=== PATIENT | female | born 1975 | race Caucasian/White ===

== ENCOUNTER 2024-08-25 11:25 | Inpatient (IN) | payer SELFPAY ==
[~2024-08-25] VITALS: Ht 175.3 cm; Wt 130.6 kg
--- NOTE | 2024-08-25 12:03 | ED.PDOC ---
Eye-HPI HPI Comments 49y F who presents to the ED for chief complaint of sore throat. Pt states she has been taking amoxicillin for her tonsilitis and has finished her course but still continuing to have pain. Pt states he has noticed she has also started to have mouth sores and increasing pain which has been disrupting her sleep and came for further evaluation. Pt states she has also been having bilateral leg swelling for the past 1 week. Pt otherwise denies chest pain, shortness of breath, nausea, vomiting, fever, cough, chills, headache or dizziness. Pt denies any other symptoms at this time. Chief Complaint: Sore Throat Time Seen by MD: 12:01 Reviewed Notes: Medications, Allergies Information Source: Patient, Spouse Mode of Arrival: Ambulatory Brought in by: spouse Past Medical History PAST MEDICAL HISTORY: HTN, Thyroid Surgical History (Other): therapeutic [employer] History: Denies all [employer] Hx Family History Family History: Unknown Social History Smoker: Non-Smoker Alcohol: Denies ETOH Use Drugs: Denies Drug Use Lives In: Home Constitutional: denies: chills, diaphoresis, fatigue, fever, malaise, sweats, weakness, others EENTM: reports: mouth pain, throat pain; denies: blurred vision, double vision, ear bleeding, ear discharge, ear drainage, ear pain, ear ringing, eye pain, eye redness, hearing loss, mouth swelling, nasal discharge, nose bleeding, nose congestion, nose pain, photophobia, tearing, throat swelling, voice changes, others Respiratory: denies: cough, hemoptysis, orthopnea, SOB at rest, shortness of breath, SOB with excertion, stridor, wheezing, others Cardiovascular: denies: chest pain, dizzy spells, diaphoresis, Dyspnea on exertion, edema, irregular heart beat, left arm pain, lightheadedness, palpitations, PND, syncope, others Gastrointestinal: denies: abdomen distended, abdominal pain, blood streaked bowels, constipated, diarrhea, dysphagia, difficulty swallowing, hematemesis, melena, nausea, poor appetite, poor fluid intake, rectal bleeding, rectal pain, vomiting, others Genitourinary: denies: abnormal vagina bleeding, burning, dyspareunia, dysuria, flank pain, frequency, hematuria, incontinence, pain, , vagina discharge, urgency, others Neurological: denies: dizziness, fainting, headache, left sided numbness, left sided weakness, numbness, paresthesia, pre-existing deficit, right sided numbness, right sided weakness, seizure, speech problems, tingling, tremors, weakness, others Musculoskeletal: denies: back pain, gout, joint pain, joint swelling, muscle pain, muscle stiffness, neck pain, others Integumetry: denies: bruises, change in color, change in hair/nails, dryness, laceration, lesions, lumps, rash, wounds, others Allergic/Immunocompromised: denies: Difficulty Healing, Frequent Infections, Hives, Itching, others Hematologic/Lymphatic: denies: anemia, blood clots, easy bleeding, easy bruising, swollen glands, others Endocrine: denies: excessive hunger, excessive sweating, excessive thirst, excessive urination, flushing, intolerance to cold, intolerance to heat, unexplained weight gain, unexplained weight loss, others Psychiatric: denies: anxiety, bipolar disorder, depression, hopeless, panic disorder, schizophrenia, sleepless, suicidal, others All Other Systems: Reviewed and Negative Physical Exam General Appearance: Moderate Distress HEENT: Pharyngeal Erythema, Tonsillar Exudate Neck: Full Range of Motion, Non-Tender, Normal, Normal Inspection Respiratory: Chest Non-Tender, Lungs Clear, No Accessory Muscle Use, No Respiratory Distress, Normal Breath Sounds Cardiovascular: No Edema, No JVD, No Murmur, No Gallop, Normal Peripheral Pulses, Regular Rate/Rhythm Breast Exam: Deferred Gastrointestinal: No Organomegaly, Non Tender, No Pulsatile Mass, Normal Bowel Sounds, Soft Genitalia: Deferred Pelvic: Deferred Rectal: Deferred Extremities: No calf tenderness, Normal capillary refill, Normal inspection, Normal range of motion, Non-tender, No pedal edema Musculoskeletal : Apperance: Normal Neurologic: Alert, hand etcher II-XII nml as Tested, No Motor Deficits, Normal Affect, Normal Mood, No Sensory Deficits Cerebellar Function: Normal Reflexes: Normal Skin: Dry, Normal Color, Warm Peripheral Pulses: 3+ Radial (R), 3+ Radial (L) Lymphatic: No Adenopathy Was a procedure done? Was a procedure done?: No EENT DIFF Eye: Bacterial, Viral Sore Throat: Epiglottitis, Hand Foot Mouth Disease, Peritonsillar Abscess, Peritonsillar Cellulitis, Pharyngitis, Streptococcal, Viral Pharyngitis X-Ray, Labs, Meds, VS Vital Signs Date Time Temp Pulse Resp B/P (MAP) Pulse Ox O2 Delivery O2 Flow Rate FiO2 08/25/24 14:47 105 19 97 Room Air* 0 21 08/25/24 14:46 104 19 104/68 (80) 97 08/25/24 14:41 98.7 101 18 138/76 (96) 99 98.7 08/25/24 11:30 98.4 106 20 138/76 (96) 99 Lab Test 08/25/24 14:53 08/25/24 13:43 Range/Units POC Glucose > 600 *H 70-106 mg/dl White Blood Count 13.2 H 4.4-10.8 10^3/uL Red Blood Count 4.90 4.0-5.20 10^6/uL Hemoglobin 15.4 12.2-16.2 g/dL Hematocrit 44.4 36.0-46.0 % Mean Corpuscular Volume 90.6 80.0-100.0 fL Mean Corpuscular Hemoglobin 31.5 28.0-32.0 pg Mean Corpuscular Hemoglobin Concent 34.7 32.0-36.0 g/dL Red Cell Distribution Width 14.1 11.8-14.3 % Platelet Count 300 140-450 10^3/uL Mean Platelet Volume 9.3 6.9-10.8 fL Neutrophils (%) (Auto) 82.5 H 37.0-80.0 % Lymphocytes (%) (Auto) 10.1 10.0-50.0 % Monocytes (%) (Auto) 5.8 0.0-12.0 % Eosinophils (%) (Auto) 1.0 0.0-7.0 % Basophils (%) (Auto) 0.6 0.0-2.0 % Neutrophils # (Auto) 10.9 H 1.6-8.6 10 ^3/uL Lymphocytes # (Auto) 1.3 0.4-5.4 10 ^3/uL Monocytes # (Auto) 0.8 0-1.3 10 ^3/uL Eosinophils # (Auto) 0.1 0-0.8 10 ^3/uL Basophils # (Auto) 0.1 0-0.2 10 ^3/uL Nucleated Red Blood Cells 0.1 % Sodium Level 121 L 136-145 mmol/L Potassium Level 4.0 3.5-5.1 mmol/L Chloride Level 88 L 98-107 mmol/L Carbon Dioxide Level 18 L 20-31 mmol/L Anion Gap 15 5-15 Blood Urea Nitrogen 15 9-23 mg/dL Creatinine 1.13 H 0.550-1.02 mg/dL Glomerular Filtration Rate Calc 60 >90 mL/min BUN/Creatinine Ratio 13.3 10.0-20.0 Serum Glucose 573 *H 74-106 mg/dL Calcium Level 9.1 8.7-10.4 mg/dL Current Medications Medications (Trade) Dose Ordered Sig/Leah Route Start Time Stop Time Status Last Admin Insulin Human Regular (InsuLIN R) 10 units ONCE ONCE IV 08/25/24 14:45 08/25/24 14:46 DC 08/25/24 15:02 Sodium Chloride 1,000 ml @ 1,000 mls/hr Q1H ONCE IV 08/25/24 14:45 08/25/24 15:44 08/25/24 14:58 Sodium Chloride 1,000 ml @ 150 mls/hr Q6H40M ONCE IV 08/25/24 14:45 08/25/24 21:24 08/25/24 14:58 Ceftriaxone Sodium 50 ml @ 100 mls/hr ONCE ONCE IV 08/25/24 14:45 08/25/24 15:14 DC 08/25/24 15:01 Patient alert. Complaining of throat pain. Vitals stable. Answering all questions. On examination of the pharynx is redness with tonsillar pillar exudate. Blood sugar elevated pain Establish intravenous access. Was given fluids pain Was given insulin. Was given Rocephin. WBC elevated. Hemoglobin within normal limits. Reviewed her history. Explained to the patient treatment plan. Continue cardiac monitoring. Time of 1ST Reevaluation: 12:35 Reevaluation 1ST: Unchanged Patient Education/Counseling: Diagnosis, Treatment Family Education/Counseling: No Family Present Departure 1 Departure Time of Disposition: 15:16 Impression: Primary Impression: Hyperglycemia Additional Impression: Tonsillitis Disposition: ADMITTED INPATIENT Admit to: Med Surg Condition: Guarded Critical Care Note Critical Care Time?: Yes (45 min-critical care time only) Stability Stability form required: No Heart Score Heart Score: Heart Score Response (Comments) Value History N/A 0 EKG N/A 0 Age N/A 0 Risk Factors N/A 0 Troponin N/A 0 Total 0 I personally scribed for ALEJANDRA DANIELS [facility] ([facility] on 08/25/24 at 12:03. Electronically submitted by Opal Rubalcava ([facility] ALEJANDRA DANIELS MD Aug 25, 2024 12:03
[2024-08-25 14:19] LABS: Chloride 88 mmol/L (98-107); Sodium 121 mmol/L (136-145)
[2024-08-25 14:20] LABS: Anion Gap 15 (5-15); Calcium 9.1 mg/dL (8.7-10.4); Carbon Dioxide 18 mmol/L (20-31)
[2024-08-25 14:25] LABS: BUN/Creatinine Ratio 13.3 (10.0-20.0); Blood Urea Nitrogen 15 mg/dL (9-23)
[2024-08-25 14:32] LABS: Glucose 573 mg/dL (74-106)
[2024-08-25 14:47] VITALS: PULSE 105; RESP 19; O2SAT 97
[2024-08-25] MEDS: SODIUM CHLORIDE 0.9% 1,000 ML IV ONE ×2 (14:58)
[2024-08-25] MEDS: cefTRIAXone 1GM/50ML D5W 50 ML IV ONE (15:01)
[2024-08-25] MEDS: InsuLIN REG 1unit/0.01ml Soln (100units/ml) IV ONE (15:02)
[2024-08-25 15:04] LABS: Basophils # (auto) 0.1 10 ^3/uL (0-0.2); Basophils % (auto) 0.6 % (0.0-2.0); Eosinophils # (auto) 0.1 10 ^3/uL (0-0.8); Hematocrit 44.4 % (36.0-46.0); Hemoglobin 15.4 g/dL (12.2-16.2); Lymphocytes # (auto) 1.3 10 ^3/uL (0.4-5.4); Lymphocytes % (auto) 10.1 % (10.0-50.0); Mean Corpuscular Hemoglobin 31.5 pg (28.0-32.0); Mean Corpuscular Hgb Conc. 34.7 g/dL (32.0-36.0); Mean Corpuscular Volume 90.6 fL (80.0-100.0); Monocytes # (auto) 0.8 10 ^3/uL (0-1.3); Monocytes % (auto) 5.8 % (0.0-12.0); Neutrophils # (auto) 10.9 10 ^3/uL (1.6-8.6); Neutrophils % (auto) 82.5 % (37.0-80.0); Nucleated Red Blood Cells % 0.1 %; Platelet Count (auto) 300 10^3/uL (140-450); Red Cell Distribution Width 14.1 % (11.8-14.3); White Blood Cell 13.2 10^3/uL (4.4-10.8)
[2024-08-25] MEDS ORDERED: INSULIN DRIP 100 UNIT/100ML 100 ML IV SCH (17:00)
[2024-08-25] MEDS ORDERED: DEXTROSE (50%) 50ML SYRG IV PRN (17:00)
[2024-08-25] MEDS ORDERED: ACCU-CHEK COMFORT CURVE STRIP VI SCH (18:00)
[2024-08-25 20:07] VITALS: BP 121/73; PULSE 103; RESP 18; TEMP 98.1
[2024-08-25] MEDS ORDERED: NITROGLYCERIN 0.4 MG SL TAB SL PRN (20:45)
[2024-08-25] MEDS ORDERED: MORPHINE SULFATE INJ 2 MG/ml SYRG IV PRN (20:45)
[2024-08-25] MEDS ORDERED: ONDANSETRON HCL 4 MG/2 ML VIAL IV PRN (20:45)
[2024-08-25] MEDS: SODIUM CHLOR 0.9% PF (SALINE LOCK) 10ML VIAL/SYR IV SCH (22:21)
[2024-08-26] VITALS (7 sets, daily range): BP systolic 105–123; BP diastolic 64–81; PULSE 85–97; RESP 16–20; TEMP 97.3–99.1; O2SAT 96–100
--- NOTE | 2024-08-26 00:08 | DVHHPRES ---
History of Present Illness Resident Creating Document: LUIS ALFREDO LEAL RESIDENT History of Present Illness This is a 49-year-old female with past medical history of hypertension, hypothyroidism , degenerative disc disease, peripheral neuropathy, presented to the ED with a chief complaint of sore throat, low-grade fever, body ache and muscle pain intermittently for last 1 month prior to this admission. She states she took amoxicillin for sore throat ,finished the course but still she has pain in the throat and also has low-grade fever on and off for last 1 month. She was not able to see the doctor because of no insurance. She Also mentioned recently was diagnosed with type 2 diabetes mellitus but her doctor never sent her prescription for the medication. She denies chest pain, shortness of breath, dizziness, diaphoresis, abdominal pain, nausea ,vomiting, sick contact or any traveling history. Cardiovascular: HTN Endocrine: Diabetes, Hypothyroidism Past Medical History Hypertension, degenerative disc disease, hypothyroidism and peripheral neuropathy Past Surgical History: None Family History Mother in stroke Past Social History Smokes marijuana, occasional drinker and never tried any other drugs Lives with family Review of Systems Constitutional: Yes: Malaise; No: Fever, Chills, Sweats, Weakness, Other Eyes: No: Pain, Vision change, Conjunctivae inflammation, Eyelid inflammation, Other, Redness ENT: No: Ear pain, Ear discharge, Nose pain, Nose discharge, Nose congestion, Mouth pain, Mouth swelling, Throat pain, Throat swelling, Other Cardiovascular: No: Chest Pain, Palpitations, Orthopnea, Paroxysmal Noc. Dyspnea, Edema, Lt Headedness, Other Gastrointestinal: No: Nausea, Vomiting, Abdominal Pain, Diarrhea, Constipation, Melena, Hematochezia, Other Genitourinary: No Dysuria, No Frequency, No Incontinence, No Hematuria, No Retention, No Other Musculoskeletal: No: other, neck pain, shoulder pain, arm pain, back pain, hand pain, leg pain, foot pain Skin: No: Rash, Lesions, Jaundice, Bruising, Other Neurological: No: Weakness, Numbness, Incoordination, Change in speech, Confusion, Seizures, Other Allergies: Coded Allergies: NO KNOWN ALLERGIES (Unverified , 08/25/24) Medications Current Medications Medications Dose Ordered Sig/Leah Route Start Time Stop Time Status Last Admin Dose Admin Sodium Chloride 10 ml Q8HR IV 08/25/24 22:00 08/25/24 22:21 10 ML Acetaminophen 325 mg Q4HP PRN PO 08/25/24 20:45 Acetaminophen/ Hydrocodone Bitart 1 tab Q4HP PRN PO 08/25/24 20:45 Ondansetron HCl 4 mg Q4HP PRN IV 08/25/24 20:45 Nitroglycerin 0.4 mg Q5MINP PRN SL 08/25/24 20:45 Morphine Sulfate 2 mg Q30M PRN IV 08/25/24 20:45 Insulin Glargine 15 units QAM SC 08/26/24 07:00 UNV Diagnostic Test (Pha) 1 strip ACHS 08/26/24 07:00 UNV Insulin Human Regular AC SC 08/26/24 07:00 UNV Insulin Human Regular HS SC 08/26/24 22:00 UNV Dextrose 50 ml UD PRN IV 08/26/24 00:15 UNV Exam Vital Signs Vital Signs Date Time Temp Pulse Resp B/P (MAP) Pulse Ox O2 Delivery O2 Flow Rate FiO2 08/25/24 20:07 98.1 103 18 121/73 (89) 98.1 08/25/24 20:07 Room Air* 0 21 08/25/24 16:49 98 Exam Physical examination: General Appearance: Alert, Oriented X3, Cooperative, No acute distress HEENT: Atraumatic, PERRLA, EOMI, Mucous membrane moist/pink Respiratory: Clear to auscultation, Normal air movement Cardiovascular: Regular rate, Normal S1, Normal S2, No murmurs, no chest wall tenderness Abdominal: Normal bowel sounds, Soft, No tenderness, No hepatospenomegaly, No masses Extremities: No clubbing, No cyanosis, No edema, Normal pulses, No tenderness/swelling Skin: No rashes, No breakdown, No significant lesion Neuro: Normal gait, Normal speech, Strength at 5/5 X4 ext, Normal tone, Sensation intact. Psych/Mental Status: Mental status NL, Mood NL Labs/Xrays Labs Test 08/25/24 20:24 08/25/24 13:43 Range/Units POC Glucose 495 *H 70-106 mg/dl White Blood Count 13.2 H 4.4-10.8 10^3/uL Red Blood Count 4.90 4.0-5.20 10^6/uL Hemoglobin 15.4 12.2-16.2 g/dL Hematocrit 44.4 36.0-46.0 % Mean Corpuscular Volume 90.6 80.0-100.0 fL Mean Corpuscular Hemoglobin 31.5 28.0-32.0 pg Mean Corpuscular Hemoglobin Concent 34.7 32.0-36.0 g/dL Red Cell Distribution Width 14.1 11.8-14.3 % Platelet Count 300 140-450 10^3/uL Mean Platelet Volume 9.3 6.9-10.8 fL Neutrophils (%) (Auto) 82.5 H 37.0-80.0 % Lymphocytes (%) (Auto) 10.1 10.0-50.0 % Monocytes (%) (Auto) 5.8 0.0-12.0 % Eosinophils (%) (Auto) 1.0 0.0-7.0 % Basophils (%) (Auto) 0.6 0.0-2.0 % Neutrophils # (Auto) 10.9 H 1.6-8.6 10 ^3/uL Lymphocytes # (Auto) 1.3 0.4-5.4 10 ^3/uL Monocytes # (Auto) 0.8 0-1.3 10 ^3/uL Eosinophils # (Auto) 0.1 0-0.8 10 ^3/uL Basophils # (Auto) 0.1 0-0.2 10 ^3/uL Nucleated Red Blood Cells 0.1 % Sodium Level 121 L 136-145 mmol/L Potassium Level 4.0 3.5-5.1 mmol/L Chloride Level 88 L 98-107 mmol/L Carbon Dioxide Level 18 L 20-31 mmol/L Anion Gap 15 5-15 Blood Urea Nitrogen 15 9-23 mg/dL Creatinine 1.13 H 0.550-1.02 mg/dL Glomerular Filtration Rate Calc 60 >90 mL/min BUN/Creatinine Ratio 13.3 10.0-20.0 Serum Glucose 573 *H 74-106 mg/dL Calcium Level 9.1 8.7-10.4 mg/dL Assessment/Plan Assessment/Plan Assessment and plan: # Hyperglycemia with normal anion gap, ruled out diabetic ketoacidosis - On admission blood glucose was 600 with normal anion gap - Started Lantus 15 units q.a.m. and aggressive sliding scale of insulin. - Monitor blood sugar closely # Pseudohyponatremia due to hyperglycemia - Corrected sodium is 129-133 - Patient was given 2 L IV bolus - Monitor BMP. # ALEXANDRA secondary to hemodynamically mediated/VMN - IV normal saline at 75 mL/hour - Monitor BMP. # Morbid obesity( BMI 40.0 kg/m2) - Counseled patient regarding healthy diet, lifestyle modification and physical exercise # Severe hypothyroidism - History of hypothyroidism but patient was not able to take medication because of the lack of insurance - Levothyroxine 112 mcg daily # Hypertensive heart disease - Lisinopril 5 mg daily # Hypokalemia - Replenished # Vitamin-D deficiency - Vitamin-D 80956 units Q 7D # DVT prophylaxis - Lovenox 40 mg sc daily Goal of care discussed with the patient for more than 20 minutes full code Plan of treatment discussed with Dr. Skinner Plan discussed with: Patient, Other My Orders Orders - LUIS ALFREDO LEAL RESIDENT Procedure Category Date Status Time Admit ADMIT 08/25/24 Transmitted 20:35 Allergies JACQUELYN 08/25/24 In Process 20:35 Code Status CODE 08/25/24 Transmitted 20:35 Sodium Chloride Lock PHA 08/25/24 In Process (Saline Lock Ns) 22:00 Oxygen Per Hour RT 08/25/24 Transmitted 20:35 Acetaminophen Tablet PHA 08/25/24 In Process (Tylenol Tablet) 20:45 Hydrocodone-Acet PHA 08/25/24 In Process 5/325mg Tab ([place] 20:45 Ondansetron Hcl PHA 08/25/24 In Process (Zofran) 20:45 Complete Blood Count LAB 08/26/24 Logged 04:00 Comprehensive LAB 08/26/24 Logged Metabolic Panel 04:00 Npo (Nothing By DIET 08/26/24 Transmitted Mouth) Diet Breakfast Nitroglycerin PHA 08/25/24 In Process Sublingual (Ntrostat 20:45 Morphine Sulfate PHA 08/25/24 In Process Injection 20:45 Oxygen By Nasal RT 08/25/24 Transmitted Cannula 20:35 Stat Ekg For Chest JACQUELYN 08/25/24 In Process Pain 20:35 Notify Of Changes [facility] 08/25/24 In Process From Base 20:35 Orchid Transplanter For [facility] 08/25/24 In Process 24 Hours 20:35 Emergency Dysrhythmia [facility] 08/25/24 In Process Protocol 20:35 Rhythm Strips Once [facility] 08/25/24 In Process Every Shift 20:35 Insulin Lantus PHA 08/26/24 Logged (Glargine) (Lantus) 07:00 Glucose Blood PHA 08/26/24 Logged (Accu-Chek Comfort 07:00 Insulin R (Human) PHA 08/26/24 Logged (Insulin R) 07:00 Insulin R (Human) PHA 08/26/24 Logged (Insulin R) 22:00 Dextrose 50% Syringe PHA 08/26/24 Logged 00:15 Urinalysis LAB 08/26/24 Uncollected 00:03 Test, Urine LAB 08/26/24 Transmitted 00:03 Thyroid Stimulating LAB 08/26/24 Transmitted Hormone 00:03 Vitamin B12 LAB 08/26/24 Transmitted 00:03 Vitamin D, 25-Hydroxy LAB 08/26/24 Transmitted 00:03 LUIS ALFREDO LEAL RESIDENT Aug 26, 2024 00:08
[2024-08-26] MEDS ORDERED: DEXTROSE (50%) 50ML SYRG IV PRN ×2 (00:15→01:45)
[2024-08-26] MEDS: HYDROcodone-ACET 5/325MG TAB PO PRN (00:30)
[2024-08-26] MEDS: ACCU-CHEK COMFORT CURVE STRIP VI SCH (01:45)
[2024-08-26] MEDS: InsuLIN REG 1unit/0.01ml Soln (100units/ml) SC SCH (02:08)
[2024-08-26] MEDS: SODIUM CHLORIDE 0.9% 1,000 ML IV SCH ×2 (03:30→15:47)
[2024-08-26 03:40] LABS: Urine Bacteria None Seen /hpf (None Seen)
[2024-08-26 03:52] LABS: Urine Blood 2+ /uL (Negative); Urine Clarity Clear (Clear); Urine Color Light-Yellow (Yellow); Urine Mucus FEW (None Seen); Urine Protein, UAD Negative (Negative); Urine Specific Gravity 1.035 (1.001-1.035); Urine Urobilinogen Normal (Negative); Urine WBC 3 /hpf (0 - 5)
[2024-08-26 03:56] LABS: Amphetamine Screen, Urine Neg (NEGATIVE); Barbiturate Scree,Urine Neg (NEGATIVE); Benzodiazephine Screen, Urine Neg (NEGATIVE); Cannabinoid Screen, Urine Neg (NEGATIVE); Cocaine Screen, Urine Neg (NEGATIVE); Opiate Scree,Urine Neg (NEGATIVE); Phencyclidine Screen, Urine Neg (NEGATIVE)
[2024-08-26 05:19] LABS: Basophils # (auto) 0 10 ^3/uL (0-0.2); Basophils % (auto) 0.4 % (0.0-2.0); Eosinophils # (auto) 0.1 10 ^3/uL (0-0.8); Eosinophils % (auto) 1.5 % (0.0-7.0); Hematocrit 39.5 % (36.0-46.0); Hemoglobin 13.7 g/dL (12.2-16.2); Lymphocytes # (auto) 1.6 10 ^3/uL (0.4-5.4); Lymphocytes % (auto) 25.4 % (10.0-50.0); Mean Corpuscular Hemoglobin 30.9 pg (28.0-32.0); Mean Corpuscular Hgb Conc. 34.6 g/dL (32.0-36.0); Mean Corpuscular Volume 89.4 fL (80.0-100.0); Monocytes # (auto) 0.5 10 ^3/uL (0-1.3); Monocytes % (auto) 8.1 % (0.0-12.0); Neutrophils # (auto) 4.1 10 ^3/uL (1.6-8.6); Neutrophils % (auto) 64.6 % (37.0-80.0); Nucleated Red Blood Cells % 0.1 %; Platelet Count (auto) 231 10^3/uL (140-450); Red Blood Cells 4.41 10^6/uL (4.0-5.20); Red Cell Distribution Width 13.9 % (11.8-14.3); White Blood Cell 6.4 10^3/uL (4.4-10.8)
[2024-08-26 05:25] LABS: Alanine Aminotransferase 49 U/L (7-40); Albumin 3.7 g/dL (3.2-4.8); Alkaline Phosphatase 79 U/L (46-116); Anion Gap 13 (5-15); Aspartate Aminotransferase 34 U/L (13-40); BUN/Creatinine Ratio 12.2 (10.0-20.0); Bilirubin, Total 0.5 mg/dL (0.2-1.0); Blood Urea Nitrogen 10 mg/dL (9-23); Calcium 8.5 mg/dL (8.7-10.4); Carbon Dioxide 18 mmol/L (20-31); Chloride 96 mmol/L (98-107); Glucose 355 mg/dL (74-106); Potassium 3.2 mmol/L (3.5-5.1); Total Protein 6.6 g/dL (5.7-8.2)
[2024-08-26 05:26] LABS: Sodium 127 mmol/L (136-145)
[2024-08-26] MEDS: INSULIN LANTUS (GLARGINE) 1 /0.01ml (100units/ml) SC SCH (06:31)
[2024-08-26] MEDS: POTASSIUM CHL 20 Meq TABLET PO ONE (06:31)
--- NOTE | 2024-08-26 06:37 | DVH ---
CHEST RADIOGRAPH Indication:shortness of breath Technique: Single frontal view of the chest was obtained Comparison: None FINDINGS: Lines and Tubes: None Lungs: No focal consolidation. Pleura: No effusion. No pneumothorax. Cardiomediastinal contours: Unremarkable Bones: No acute osseous abnormality. IMPRESSION: No acute cardiopulmonary disease.
[2024-08-26] MEDS ORDERED: INSULIN LANTUS (GLARGINE) 1 /0.01ml (100units/ml) SC SCH (07:00)
[2024-08-26] MEDS ORDERED: InsuLIN REG 1unit/0.01ml Soln (100units/ml) SC SCH ×2 (07:00→22:00)
[2024-08-26] MEDS ORDERED: ACCU-CHEK COMFORT CURVE STRIP VI SCH (07:00)
[2024-08-26 07:22] LABS: Rapid Influenza A Negative (Negative); Rapid Influenza B Negative (Negative)
[2024-08-26 07:23] LABS: COVID19 ANTIGEN SOFIA FIA NEGATIVE (NEGATIVE)
[2024-08-26 08:55] LABS: Free T3 1.97 pg/mL (2.3-4.2)
[2024-08-26 08:58] LABS: Free T4 (Free Thyroxine) 1.03 ng/dL (0.89-1.76)
[2024-08-26] MEDS: ERGOCALCIFEROL 50,000 UNIT(1.25MG) CAP PO SCH (09:14)
[2024-08-26] MEDS: ENOXAPARIN SOD 40 MG/0.4 ML SYRINGE SC SCH (09:15)
[2024-08-26] MEDS: LISINOPRIL 5 MG TAB PO SCH (09:15)
--- NOTE | 2024-08-26 10:00 | DVHPNRES ---
Progress Note Date Seen: Aug 26, 2024 Resident Creating Document: NACHO SANTOS RESIDENT Medical Necessity Reason Pt with a Central, PICC or Fol: No Subjective Review of Systems Patient is 49 years old female with past medical history of hypertension, hypothyroidism, degenerative disc disease, peripheral neuropathy came to the ER with a complaint of feeling tired fatigued and sore throat for last 3 -4 weeks. Patient reported that she has been having sore throat for last 3 weeks with mild low-grade fever. Reported she had been having hard time eating because of the sore throat. Patient reported seeing a doctor who gave her some antibiotic Augmentin b.i.d. for 5 days and she to keep body still having some sore throat. Patient also reported feeling body ache, muscle ache and insomnia and poor appetite for last couple of weeks. Further discussion patient also reported having a leg cramp going for a while. Patient she was diagnosed with diabetes mellitus recently on August 22 and her doctor's denies seen her insulin. Patient reported that she had insurance issue that is why she could not see her doctor as she wanted. Initial lab workup revealed patient with uncontrolled diabetes mellitus serum glucose 583, leukocytosis WBC 13.2, dilutional hyponatremia, 127, mild hypokalemia potassium 3.2, ALEXANDRA serum creatinine 1.13, elevated TSH 28.89, immunodeficiency 24.5. Also reported using marijuana. Chest x-ray was negative for acute cardiopulmonary change. UDS negative. Patient was negative for influenza type A and B and COVID-19. PMH-hypertension, hypothyroidism, degenerative disc disease, peripheral neuropathy PSH- none Allergy- NKDA Personal History/ Social History- lives with her fiance, smoker, occasional alcoholic, use marijuana Patient was seen today at the bedside. Patient reports some mild sore throat leg cramps Cardiovascular- deny acute chest pain or shortness of breath or cough or palpitation Respiratory- denies cough or short of breath or wheezing Gastrointestinal- denies any rectal bleeding, nausea or vomiting Musculoskeletal-denies acute joint swelling or tenderness or redness Neurological- denies acute dysarthria, dysphagia, change in vision Psychiatry- denies depression or SI or HI Skin- denies acute rash or purpura Patient was seen today for clinical evaluation. Labs and chart reviewed. Patient reported getting occasional crampy of the leg, feeling tired and mild sore throat. Patient hastrace edema in the leg, as per patient that was happening since she came into the hospital. On physical exam revealed bilateral enlarged tonsil. Patient with uncontrolled diabetes mellitus. Patient is is being treated the insulin sliding scale and Lantus. Patient is on antibiotic Augmentin 875 mg p.o. b.i.d. for tonsillitis. Potassium supplement for mild hypokalemia potassium 3.2. Patient's levothyroxine was increased from 137-150 mcg per day due to elevated TSH 0.89. Objective vital signs Vital Sign Date Time Temp Pulse Resp B/P (MAP) Pulse Ox O2 Delivery O2 Flow Rate FiO2 08/26/24 09:15 154/69 08/26/24 07:30 97.9 93 20 96 97.9 08/26/24 07:30 Room Air* 0 21 Total Intake and Output 08/25/24 08/25/24 08/26/24 15:00 23:00 07:00 Intake Total 850 ml Balance 850 ml medications Current Medications Medications Dose Ordered Sig/Leah Route Start Time Stop Time Status Last Admin Dose Admin Sodium Chloride 10 ml Q8HR IV 08/25/24 22:00 08/26/24 06:02 10 ML Acetaminophen 325 mg Q4HP PRN PO 08/25/24 20:45 Acetaminophen/ Hydrocodone Bitart 1 tab Q4HP PRN PO 08/25/24 20:45 08/26/24 00:30 1 TAB Ondansetron HCl 4 mg Q4HP PRN IV 08/25/24 20:45 Nitroglycerin 0.4 mg Q5MINP PRN SL 08/25/24 20:45 Morphine Sulfate 2 mg Q30M PRN IV 08/25/24 20:45 Diagnostic Test (Pha) 1 strip IQ4HR 08/26/24 01:00 08/26/24 08:59 1 STRIP Insulin Human Regular IQ4HR SC 08/26/24 01:00 08/26/24 08:57 12 UNITS Dextrose 50 ml UD PRN IV 08/26/24 01:45 Sodium Chloride 1,000 ml @ 75 mls/hr [id number] IV 08/26/24 03:30 Enoxaparin Sodium 40 mg DAILY SC 08/26/24 10:00 08/26/24 09:15 40 MG Insulin Glargine 20 units QAM SC 08/26/24 06:15 08/26/24 06:31 20 UNITS Levothyroxine Sodium 112 mcg QAM@0600 PO 08/27/24 06:00 Lisinopril 5 mg DAILY PO 08/26/24 10:00 08/26/24 09:15 5 MG Ergocalciferol 50,000 unit Q7D PO 08/26/24 10:00 08/26/24 09:14 50,000 UNIT Examination General examination- abuse, awake, alert, oriented, HEENT- PEERLA-bilateral enlarged tonsil Cardiovascular- S1-S2 audible, rate and rhythm regular, no murmur Respiratory- CTAB, no wheeze or rhonchi Gastrointestinal-nontender, bowel sound+. Nondistended Musculoskeletal-no acute joint swelling or tenderness or redness# Lower extremity- raised bilateral leg edema Neurological- cranial nerves intact, no acute dysarthria or dysphagia Psychiatry- denies depression or SI or HI Skin- no acute rash or purpura laboratory and microbiology Laboratory Tests 08/26/24 04:26 Test 08/26/24 04:26 Range/Units Serum Glucose 355 H 74-106 mg/dL Problem List/Assessment/Plan Problem List/Assessment/Plan #Uncontrolled diabetes mellitus type 2 -on admission initial blood sugar level was> 600 -continue insulin sliding scale -continue insulin Lantus 25 units q.d. -continue IV normal saline 125 mL/hour -monitor blood sugar level -monitors CBC, BMP #Tonsillitis likely chronic -continue Augmentin 875 mg p.o. b.i.d. #Hypothyroidism -TSH 28.89 -increase levothyroxine from 137-150 mcg QD #Hypokalemia, -no acute symptoms -ordered potassium chloride supplement -monitor BNP # ALEXANDRA likely due to VMN -continue IV normal saline 125 mL/hour -monitor BMP # leukocytosis likely due to chronic tonsillitis -monitor CBC #Dilutional hyponatremia due to hyperglycemia -sodium 121, blood sugar level> 600 -characterize sodium 129 -patient with no symptoms of hyponatremia -monitor BMP # hypertension -continue lisinopril 5 mg p.o. daily # vitamin-D deficiency -continue ergocalciferol 93139 units q.week # morbid obesity, BMI 41.9 -patient was counseled regarding healthy diet, vegetation, physical activity # history of degenerative disc disease -continue pain medicine as prescribed # peripheral neuropathy -continue pain medicine as prescribed # history of substance abuse, marijuana -patient was counseled about the effect of substance abuse on health # history of alcoholism --patient was counseled about the effect of alcoholism on health # smoker ---patient was counseled about the effect of smoking on health Goals of care/advance care planning; FULL CODE; discussed with the patient PUD prophylaxis: Pantoprazole DVT prophylaxis: Patient ambulating Plan discussed with Dr. Cabral, nursing staff, patient Total time spent on patient evaluation, chart review, assessment and plan, discussion discussion >20 minutes Plan discussed with: Patient Plan discussed with: Patient, Other (RN) My Orders My Orders Orders - NACHO SANTOS Procedure Category Date Status Time Consistent DIET 08/26/24 [facility]Di[facility] Breakfast NACHO SANTOS Aug 26, 2024 09:59
[2024-08-26] MEDS ORDERED: GABA-1250 PO (12:23)
[2024-08-26] MEDS ORDERED: LISI-287 PO (12:23)
[2024-08-26] MEDS ORDERED: LEVO112T4 PO (12:23)
[2024-08-26] MEDS ORDERED: CHOL200010 PO (12:25)
[2024-08-26] MEDS: AMOXICILLIN/CLAVUL 875 MG TAB PO SCH (22:19)
[2024-08-27] VITALS (8 sets, daily range): BP systolic 102–143; BP diastolic 59–95; PULSE 55–96; RESP 16–20; TEMP 97.6–98.2; O2SAT 93–99
[2024-08-27] MEDS: LEVOTHYROXINE SODIUM 50 MCG TAB PO SCH (05:38)
[2024-08-27] MEDS: PANTOPRAZOLE 40 MG TAB PO SCH (05:38)
[2024-08-27] MEDS: INSULIN LANTUS (GLARGINE) 1 /0.01ml (100units/ml) SC SCH (05:41)
[2024-08-27] MEDS ORDERED: LEVOTHYROXINE SODIUM 112 MCG TAB PO SCH (06:00)
[2024-08-27 06:56] LABS: Anion Gap 9 (5-15); Carbon Dioxide 21 mmol/L (20-31); Chloride 99 mmol/L (98-107); Potassium 3.2 mmol/L (3.5-5.1); Sodium 129 mmol/L (136-145)
[2024-08-27 06:57] LABS: Calcium 8.4 mg/dL (8.7-10.4)
[2024-08-27 07:03] LABS: BUN/Creatinine Ratio 8.8 (10.0-20.0); Blood Urea Nitrogen 6 mg/dL (9-23); Glucose 279 mg/dL (74-106)
[2024-08-27 07:47] LABS: Hematocrit 39.2 % (36.0-46.0); Hemoglobin 13.4 g/dL (12.2-16.2); Mean Corpuscular Hemoglobin 30.3 pg (28.0-32.0); Mean Corpuscular Hgb Conc. 34.2 g/dL (32.0-36.0); Mean Corpuscular Volume 88.6 fL (80.0-100.0); Platelet Count (auto) 248 10^3/uL (140-450); Red Blood Cells 4.42 10^6/uL (4.0-5.20); Red Cell Distribution Width 14.1 % (11.8-14.3); White Blood Cell 5.3 10^3/uL (4.4-10.8)
[2024-08-27 07:49] LABS: Basophils % (manual) 0 (0.0-2.0); Blast Cells 0; Eosinophils % (manual) 0 (0-7); Metamyelocytes % 0; Myelocytes % 0; Promyelocytes % 0; Reactive Lymphocytes 0
[2024-08-27 08:17] LABS: Triglycerides 505 mg/dL (< 150)
[2024-08-27 08:19] LABS: Cholesterol 170 mg/dL (< 200); HDL Cholesterol 27 mg/dL (40-59)
[2024-08-27 10:32] LABS: Band Neutrophils % (manual) 6; Lymphocytes % (manual) 33 (10.0-50.0); Monocytes % (manual) 5 (0-12)
[2024-08-27 10:33] LABS: Platelet Estimate Adequate
[2024-08-27] MEDS: INSULIN LANTUS (GLARGINE) 1 /0.01ml (100units/ml) SC STA (14:19)
--- NOTE | 2024-08-27 14:51 | DVHPNRES ---
Progress Note Date Seen: Aug 27, 2024 Resident Creating Document: LAURY PAVON RESIDENT Medical Necessity Reason Pt with a Central, PICC or Fol: No Subjective Review of Systems Patient is 49 years old female with past medical history of hypertension, hypothyroidism, degenerative disc disease, peripheral neuropathy came to the ER with a complaint of feeling tired fatigued and sore throat for last 3 -4 weeks. Patient reported that she has been having sore throat for last 3 weeks with mild low-grade fever. Reported she had been having hard time eating because of the sore throat. Patient reported seeing a doctor who gave her some antibiotic Augmentin b.i.d. for 5 days and she to keep body still having some sore throat. Patient also reported feeling body ache, muscle ache and insomnia and poor appetite for last couple of weeks. Further discussion patient also reported having a leg cramp going for a while. Patient she was diagnosed with diabetes mellitus recently on August 22 and her doctor's denies seen her insulin. Patient reported that she had insurance issue that is why she could not see her doctor as she wanted. Initial lab workup revealed patient with uncontrolled diabetes mellitus serum glucose 583, leukocytosis WBC 13.2, dilutional hyponatremia, 127, mild hypokalemia potassium 3.2, ALEXANDRA serum creatinine 1.13, elevated TSH 28.89, immunodeficiency 24.5. Also reported using marijuana. Chest x-ray was negative for acute cardiopulmonary change. UDS negative. Patient was negative for influenza type A and B and COVID-19. Patient seen and examined at bedside. Patient still reporting mild to moderate pain while swallowing but is tolerating oral diet and denies any nausea or vomiting at this time. Patient states that pain has been improving compared to admission. We will continue oral antibiotics (Augmentin 875 mg b.i.d.). Blood sugar still significantly elevated so we had to increase Lantus from 25 units to 35 units QD. Hemoglobin A1c came back more than 14%. We will reassess blood glucose tomorrow and if it is more controlled we will discharge the patient home with the appropriate diabetic medications. ROS Constitutional: Denies weight loss, fever and chills. HEENT: Reports mild to moderate pain while swallowing and throat soreness. Denies changes in vision and hearing. Respiratory: Denies shortness of breath and cough Cardiovascular: Denies chest discomfort or palpitations GI: Denies abdominal pain, nausea, vomiting and diarrhea. : Denies dysuria and urinary frequency. Musculoskeletal: Denies myalgias and joint pain Skin: Denies rash and pruritus. Neurological: Denies dizziness, headache, vision or hearing problems Objective vital signs Vital Sign Date Time Temp Pulse Resp B/P (MAP) Pulse Ox O2 Delivery O2 Flow Rate FiO2 08/27/24 13:15 98.1 55 18 136/76 (96) 93 98.1 08/26/24 20:00 Room Air* 0 21 Total Intake and Output 08/26/24 08/26/24 08/27/24 15:00 23:00 07:00 Intake Total 900 ml Output Total 4 ml Balance 896 ml medications Current Medications Medications Dose Ordered Sig/Leah Route Start Time Stop Time Status Last Admin Dose Admin Sodium Chloride 10 ml Q8HR IV 08/25/24 22:00 08/27/24 05:41 10 ML Acetaminophen 325 mg Q4HP PRN PO 08/25/24 20:45 Acetaminophen/ Hydrocodone Bitart 1 tab Q4HP PRN PO 08/25/24 20:45 08/26/24 17:20 1 TAB Ondansetron HCl 4 mg Q4HP PRN IV 08/25/24 20:45 Nitroglycerin 0.4 mg Q5MINP PRN SL 08/25/24 20:45 Morphine Sulfate 2 mg Q30M PRN IV 08/25/24 20:45 Diagnostic Test (Pha) 1 strip IQ4HR 08/26/24 01:00 08/27/24 11:40 1 STRIP Insulin Human Regular IQ4HR SC 08/26/24 01:00 08/27/24 13:19 12 UNITS Dextrose 50 ml UD PRN IV 08/26/24 01:45 Enoxaparin Sodium 40 mg DAILY SC 08/26/24 10:00 08/27/24 11:40 40 MG Lisinopril 5 mg DAILY PO 08/26/24 10:00 08/27/24 11:39 5 MG Ergocalciferol 50,000 unit Q7D PO 08/26/24 10:00 08/26/24 09:14 50,000 UNIT Levothyroxine Sodium 150 mcg QAM@0600 PO 08/27/24 06:00 08/27/24 05:38 150 MCG Amoxicillin/ Clavulanate Potassium 875 mg Q12HR PO 08/26/24 22:00 08/27/24 11:38 875 MG Sodium Chloride 1,000 ml @ 125 mls/hr Q8H IV 08/26/24 15:30 08/26/24 15:47 125 MLS/HR Pantoprazole Sodium 40 mg DAILY@0600 PO 08/27/24 06:00 08/27/24 05:38 40 MG Insulin Glargine 35 units QAM SC 08/28/24 07:00 Examination Physical Examination General: Patient alert and oriented in person, place and time. Patient following commands. HEENT: Oropharynx is slightly erythematous with bilateral tonsillitis (both adenoids increase in size and with significant erythema but no plaques observed). Normocephalic, atraumatic, moist mucous membranes Respiratory/pulmonary: Clear lungs bilaterally, no associated crackles or wheezes. Cardiovascular: Normal heart sounds S1 and S2 with no associated murmurs Abdomen: Abdomen nondistended, there is no pain to palpation in any of the abdominal quadrants, no palpable masses. Extremities: There is no peripheral edema present at the lower extremities. Peripheral Pulses: 3+ Radial (R). 3+ Radial (L). 3+ Dorsalis pedis (R). 3+ Dorsalis pedis(L) Skin: No rashes or pruritus, there is no sacral edema present at this time. Neurological: Intact cranial nerves with no focal neurologic deficits laboratory and microbiology Laboratory Tests 08/27/24 06:00 Test 08/27/24 06:00 Range/Units Serum Glucose 279 H 74-106 mg/dL Problem List/Assessment/Plan Problem List/Assessment/Plan Assessment/Plan Acute bilateral tonsillitis -continue Augmentin 875 mg p.o. b.i.d. 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 -monitor blood sugar level Hypothyroidism -TSH 28.89 -Ordered FT4 and T3 which came back at 1.03 and 1.97 respectively -Continue levothyroxine 150 mcg QD Hypokalemia, -no acute symptoms -ordered potassium chloride supplement -monitor BNP ALEXANDRA likely due to VMN -continue IV normal saline 125 mL/hour -monitor BMP Dilutional hyponatremia due to hyperglycemia -sodium 121, blood sugar level> 600 -Today Na was 129 hypertension -continue lisinopril 5 mg p.o. daily vitamin-D deficiency -continue ergocalciferol 23365 units q.week morbid obesity -BMI 41.9 -patient was counseled regarding healthy diet, vegetation, physical activity history of degenerative disc disease -continue pain medicine as prescribed history of polysubstance abuse, marijuana/alcohol -patient was counseled about the effect of substance abuse on health Current smoker -Rn Transfer on smoking cessation Goals of care discussed with the patient at bedside for > 23min, FULLCODE Plan of care discussed with Dr. Cabral Plan discussed with: Patient My Orders My Orders Orders - LAURY PAVON Procedure Category Date Status Time Insulin Lantus PHA 08/28/24 In Process (Glargine) (Lantus) 07:00 LAURY PAVON RESIDENT Aug 27, 2024 14:51
[2024-08-27] MEDS: INSULIN LANTUS (GLARGINE) 1 /0.01ml (100units/ml) SC ONE (15:49)
[2024-08-27] MEDS: POTASSIUM CHL 20 Meq TABLET PO ONE (15:49)
[2024-08-28 01:00] VITALS: BP 107/60; PULSE 82; RESP 20; TEMP 98.1; O2SAT 96
[2024-08-28] MEDS: ACETAMINOPHEN 325 MG TAB PO PRN (03:59)
[2024-08-28 05:00] VITALS: BP 117/83; PULSE 83; RESP 20; TEMP 97.7; O2SAT 96
[2024-08-28 06:33] LABS: Basophils # (auto) 0 10 ^3/uL (0-0.2); Basophils % (auto) 0.6 % (0.0-2.0); Eosinophils # (auto) 0.1 10 ^3/uL (0-0.8); Eosinophils % (auto) 2.1 % (0.0-7.0); Hematocrit 36.1 % (36.0-46.0); Hemoglobin 12.7 g/dL (12.2-16.2); Lymphocytes # (auto) 1.8 10 ^3/uL (0.4-5.4); Lymphocytes % (auto) 35.2 % (10.0-50.0); Mean Corpuscular Hemoglobin 31.3 pg (28.0-32.0); Mean Corpuscular Hgb Conc. 35.1 g/dL (32.0-36.0); Mean Corpuscular Volume 89.2 fL (80.0-100.0); Monocytes # (auto) 0.7 10 ^3/uL (0-1.3); Monocytes % (auto) 13.5 % (0.0-12.0); Neutrophils # (auto) 2.5 10 ^3/uL (1.6-8.6); Neutrophils % (auto) 48.6 % (37.0-80.0); Nucleated Red Blood Cells % 0.3 %; Platelet Count (auto) 227 10^3/uL (140-450); Red Blood Cells 4.05 10^6/uL (4.0-5.20); Red Cell Distribution Width 14.4 % (11.8-14.3); White Blood Cell 5.1 10^3/uL (4.4-10.8)
[2024-08-28 06:42] LABS: Chloride 105 mmol/L (98-107); Potassium 3.5 mmol/L (3.5-5.1); Sodium 133 mmol/L (136-145)
[2024-08-28 06:43] LABS: Anion Gap 6 (5-15); Calcium 8.5 mg/dL (8.7-10.4); Carbon Dioxide 22 mmol/L (20-31)
[2024-08-28 06:48] LABS: Glucose 245 mg/dL (74-106)
[2024-08-28 06:49] LABS: Blood Urea Nitrogen 6 mg/dL (9-23)
[2024-08-28] MEDS: INSULIN LANTUS (GLARGINE) 1 /0.01ml (100units/ml) SC SCH (06:51)
[2024-08-28] MEDS: LEVOTHYROXINE SODIUM 50 MCG TAB ONE ×2 (07:44→07:45)
[2024-08-28 09:00] VITALS: BP 128/85; PULSE 82; RESP 16; TEMP 98.4; O2SAT 98
[2024-08-28] MEDS ORDERED: LACTULOSE 20Gm/30ML SOLN PO ONE (11:15)
[2024-08-28] MEDS: DOCUSATE SOD 100 MG CAP PO PRN (12:08)
--- NOTE | 2024-08-28 12:36 | DVHDSRES ---
Discharge Summary Date of Admission Resident Creating Document: LAURY PAVON RESIDENT Aug 25, 2024 at 20:35 Date of Discharge: Aug 28, 2024 Admitting Diagnosis Sore throat Labs/Diagnostic Data: Laboratory Results Test 08/28/24 12:02 08/28/24 06:01 08/27/24 06:00 08/26/24 05:10 POC Glucose 279 mg/dl (70-106) White Blood Count 5.1 10^3/uL (4.4-10.8) Red Blood Count 4.05 10^6/uL (4.0-5.20) Hemoglobin 12.7 g/dL (12.2-16.2) Hematocrit 36.1 % (36.0-46.0) Mean Corpuscular Volume 89.2 fL (80.0-100.0) Mean Corpuscular Hemoglobin 31.3 pg (28.0-32.0) Mean Corpuscular Hemoglobin Concent 35.1 g/dL (32.0-36.0) Red Cell Distribution Width 14.4 % (11.8-14.3) Platelet Count 227 10^3/uL (140-450) Mean Platelet Volume 8.3 fL (6.9-10.8) Neutrophils (%) (Auto) 48.6 % (37.0-80.0) Lymphocytes (%) (Auto) 35.2 % (10.0-50.0) Monocytes (%) (Auto) 13.5 % (0.0-12.0) Eosinophils (%) (Auto) 2.1 % (0.0-7.0) Basophils (%) (Auto) 0.6 % (0.0-2.0) Neutrophils # (Auto) 2.5 10 ^3/uL (1.6-8.6) Lymphocytes # (Auto) 1.8 10 ^3/uL (0.4-5.4) Monocytes # (Auto) 0.7 10 ^3/uL (0-1.3) Eosinophils # (Auto) 0.1 10 ^3/uL (0-0.8) Basophils # (Auto) 0 10 ^3/uL (0-0.2) Nucleated Red Blood Cells 0.3 % Sodium Level 133 mmol/L (136-145) Potassium Level 3.5 mmol/L (3.5-5.1) Chloride Level 105 mmol/L (98-107) Carbon Dioxide Level 22 mmol/L (20-31) Anion Gap 6 (5-15) Blood Urea Nitrogen 6 mg/dL (9-23) Creatinine 0.67 mg/dL (0.550-1.02) Glomerular Filtration Rate Calc 108 mL/min (>90) BUN/Creatinine Ratio 9.0 (10.0-20.0) Serum Glucose 245 mg/dL (74-106) Calcium Level 8.5 mg/dL (8.7-10.4) Differential Total Cells Counted 100.0 (100) Neutrophils % (Manual) 56 (37.0-80.0) Band Neutrophils % (Manual) 6 Lymphocytes % (Manual) 33 (10.0-50.0) Monocytes % (Manual) 5 (0-12) Eosinophils % (Manual) 0 (0-7) Basophils % (Manual) 0 (0.0-2.0) Metamyelocytes % (manual) 0 Myelocytes % (Manual) 0 Promyelocytes % (Manual) 0 Blast Cells % (Manual) 0 Reactive Lymphocytes 0 Platelet Estimate Adequate Hemoglobin A1c > 14.0 % A1C (<5.7) Triglycerides Level 505 mg/dL (< 150) Cholesterol Level 170 mg/dL (< 200) LDL Cholesterol mg/dL (< 100) HDL Cholesterol 27 mg/dL (40-59) Influenza Type A Antigen Negative (Negative) Influenza Type B Antigen Negative (Negative) SARS-CoV-2 Antigen (Rapid) Negative (NEGATIVE) Test 08/26/24 04:26 08/26/24 03:30 Total Bilirubin 0.5 mg/dL (0.2-1.0) Aspartate Amino Transferase (AST) 34 U/L (13-40) Alanine Aminotransferase (ALT) 49 U/L (7-40) Alkaline Phosphatase 79 U/L (46-116) Total Protein 6.6 g/dL (5.7-8.2) Albumin 3.7 g/dL (3.2-4.8) Vitamin B12 Level 2641 pg/mL (211-911) Vitamin D 25-Hydroxy 24.5 ng/mL (30.0-100) Thyroid Stimulating Hormone (TSH) 28.89 uIU/mL (0.55-4.78) Free Thyroxine (T4) Calculated 1.03 ng/dL (0.89-1.76) Free Triiodothyronine (T3) pg/mL 1.97 pg/mL (2.3-4.2) Urine Color Light-yellow (Yellow) Urine Clarity Clear (Clear) Urine pH 5.0 (5.0-9.0) Urine Specific [place] 1.035 (1.001-1.035) Urine Protein Negative (Negative) Urine Ketones 4+ (Negative) Urine Blood 2+ /uL (Negative) Urine Nitrite Negative (Negative) Urine Bilirubin Negative (Negative) Urine Urobilinogen Normal mg/dL (Negative) Urine Leukocyte Esterase Negative /uL (Negative) Urine RBC 10 /hpf (0 - 4) Urine WBC 3 /hpf (0 - 5) Urine Squamous Epithelial Cells Few /hpf (<5) Urine Bacteria None seen /hpf (None Seen) Urine Granular Casts Few /lpf (0) Urine Mucus Few (None Seen) Urine Glucose 4+ mg/dL (Normal) Urine Test Negative (Negative) Urine Opiates Screen Neg (NEGATIVE) Urine Fentanyl Screen Neg (NEGATIVE) Urine Barbiturates Screen Neg (NEGATIVE) Urine Phencyclidine Screen Neg (NEGATIVE) Urine Amphetamines Screen Neg (NEGATIVE) Urine Benzodiazepines Screen Neg (NEGATIVE) Urine Cocaine Screen Neg (NEGATIVE) Urine Cannabinoids Screen Neg (NEGATIVE) Other Laboratory Tests 08/28/24 06:01 Brief Hx & Hospital Course: Patient is 49 years old female with past medical history of hypertension, hypothyroidism, degenerative disc disease, peripheral neuropathy came to the ER with a complaint of feeling tired fatigued and sore throat for last 3 -4 weeks. Patient reported that she has been having sore throat for last 3 weeks with mild low-grade fever. Reported she had been having hard time eating because of the sore throat. Patient reported seeing a doctor who gave her some antibiotic Augmentin b.i.d. for 5 days and she to keep body still having some sore throat. Patient also reported feeling body ache, muscle ache and insomnia and poor appetite for last couple of weeks. Further discussion patient also reported having a leg cramp going for a while. Patient she was diagnosed with diabetes mellitus recently on August 22 and her doctor's denies seen her insulin. Patient reported that she had insurance issue that is why she could not see her doctor as she wanted. Initial lab workup revealed patient with uncontrolled diabetes mellitus serum glucose 583, leukocytosis WBC 13.2, dilutional hyponatremia, 127, mild hypokalemia potassium 3.2, ALEXANDRA serum creatinine 1.13, elevated TSH 28.89, immunodeficiency 24.5. Also reported using marijuana. Chest x-ray was negative for acute cardiopulmonary change. UDS negative. Patient was negative for influenza type A and B and COVID-19. Patient was found to have uncontrolled diabetes mellitus type 2 with HGB A1c > 14, bilateral tonsillitis likely chronic. Patient was treated with insulin and Augmentin with other fluids. Patient's levothyroxine was increased from 137 to 150 mcg per day high TSH 28.89. Patient's symptoms clinically improved with treatment. Patient was discharged home with Augmentin 875 mg p.o. b.i.d., metformin 1000 mg p.o. b.i.d, glipizide 5 mg p.o. daily, levothyroxine 150 mcg p.o. daily, fenofibrate 145 mg p.o. daily. Patient is advised to resume other home medications. Patient was advised to follow up with the primary care physician and ENT specialist for further care of bilateral tonsillitis. Patient verbalized understanding. Patient was discharged hemodynamically stable condition. Patient's meds were sent to the pharmacy electronically PMH-hypertension, hypothyroidism, degenerative disc disease, peripheral neuropathy PSH- none Allergy- NKDA Personal History/ Social History- lives with her fiance, smoker, occasional alcoholic, use marijuana Patient was seen today at the bedside. Patient reports some mild sore throat leg cramps Cardiovascular- deny acute chest pain or shortness of breath or cough or palpitation Respiratory- denies cough or short of breath or wheezing Gastrointestinal- denies any rectal bleeding, nausea or vomiting Musculoskeletal-denies acute joint swelling or tenderness or redness Neurological- denies acute dysarthria, dysphagia, change in vision Psychiatry- denies depression or SI or HI Skin- denies acute rash or purpura General examination- abuse, awake, alert, oriented, HEENT- PEERLA-bilateral enlarged tonsil Cardiovascular- S1-S2 audible, rate and rhythm regular, no murmur Respiratory- CTAB, no wheeze or rhonchi Gastrointestinal-nontender, bowel sound+. Nondistended Musculoskeletal-no acute joint swelling or tenderness or redness# Lower extremity- raised bilateral leg edema Neurological- cranial nerves intact, no acute dysarthria or dysphagia Psychiatry- denies depression or SI or HI Skin- no acute rash or purpura Operations or Procedures DIAGNOSTIC IMAGING Diagnostic Imaging Report : [id number] Signed PATIENT: NANCY SHEPHERD ACCT: [id number] UNIT: [id number] : 1975 [facility] AGE / SEX: 49 / F ADM STATUS: ADM IN SERVICE 0455 ORDERING PHYSICIAN: LUIS ALFREDO LEAL RESIDENT PROCEDURE(s): CXRP - CHEST PORTABLE REASON: shortness of breath ORDER NUMBER(s): [id number], ACCESSION NUMBER(s): [id number] CHEST RADIOGRAPH Indication:shortness of breath Technique: Single frontal view of the chest was obtained Comparison: None FINDINGS: Lines and Tubes: None Lungs: No focal consolidation. Pleura: No effusion. No pneumothorax. Cardiomediastinal contours: Unremarkable Bones: No acute osseous abnormality. IMPRESSION: No acute cardiopulmonary disease. 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 HTN Hypothyroidism ALEXANDRA likely due to VMN Leukocytosis likely due to tonsillitis Dilutional hyponatremia likely due to hypoglycemia vitamin-D deficiency morbid obesity, BMI 41.9 history of degenerative disc disease peripheral neuropathy Hypertriglyceridemia history of substance abuse, marijuana History of alcoholism Smoker Discharge Disposition: Home Discharge Instruct/Medications Diet: Consistent carbohydrate, Cardiac 2g Na,low cholest Activity: No Restrictions, As Tolerated Follow Up/Referral: Please follow up with the PCP in 1 week Please follow up with the ENT specialist for bilateral tonsillitis in 1-2 weeks Medications: Continue Augmentin Metformin 1000 mg p.o. b.i.d. Glipizide 5 mg p.o. daily Fenofibrate 145 mg p.o. daily Levothyroxine 150 mcg q.a.m. Resume other home medications Discharge Statement: "Patient was advised to return to the ER or call 911 if any headaches, dizziness, shortness of breath, chest pain, abdominal pain, bleeding, fevers, or worsening of medical condition. Patient was counseled about treatment plan, medications, possible side effects, patientverbalized understanding. All questions were answered to the best of my ability. This discharge took greater then 30 minutes in planning, reviewing documentation, counseling the patient, and discussing with other team members." ASSESSMENT ASSESSMENT Assessment Billateral Tonsillitis Uncontrolled diabetes mellitus type 2 HTN Hypothyroidism NACHO SANTOS RESIDENT Aug 28, 2024 12:36
[2024-08-28] MEDS ORDERED: METF-372 PO (12:52)
[2024-08-28] MEDS ORDERED: FENO5TAB PO (12:52)
[2024-08-28] MEDS ORDERED: AUG875T PO (12:52)
[2024-08-28] MEDS ORDERED: GLIP5TAB21 PO (12:53)
[2024-08-28] MEDS ORDERED: LEVO150T10 PO (12:56)
[2024-08-28 13:16] VITALS: BP 147/87; PULSE 87; RESP 15; TEMP 97.9; O2SAT 93
== END 2024-08-28 17:00 | disposition home or self-care (01) | DRG 152 ==
LOC: ER 11:31 → OVERFLOW 20:35 → EAST 08-26 17:58
PROVIDERS: ADMIT Internal Medicine; ATTEND Internal Medicine
DX: J03.90 Acute tonsillitis, unspecified (principal); N17.0 Acute kidney failure with tubular necrosis; Z68.41 Body mass index [BMI] 40.0-44.9, adult; E87.1 Hypo-osmolality and hyponatremia; E66.01 Morbid (severe) obesity due to excess calories; E03.9 Hypothyroidism, unspecified; E87.6 Hypokalemia; E55.9 Vitamin D deficiency, unspecified; E11.65 Type 2 diabetes mellitus with hyperglycemia; E11.42 Type 2 diabetes mellitus with diabetic polyneuropathy; I11.9 Hypertensive heart disease without heart failure; Z82.3 Family history of stroke
CPT/HCPCS: 36415; 71045; 80048; 80053; 80061; 80307; 81001; 81025; 82306; 82607; 82962; 83036; 84439; 84443; 84481; 85007; 85025; 85027; 87426; 87804; 96365; 96375; 99291; G0378; J1815

== ENCOUNTER 2024-10-20 17:14 | Emergency (ER) | payer MEDICAID, SELFPAY ==
[~2024-10-20] VITALS: Ht 177.8 cm; Wt 120.0 kg
[~2024-10-20 17:14] MED LIST: AUG875T PO; CHOL200010 PO; FENO5TAB PO; GABA-1250 PO; GLIP5TAB21 PO; LEVO150T10 PO; LISI-287 PO; METF-372 PO
[2024-10-20 17:15] VITALS: TEMP 99
[2024-10-20] MEDS ORDERED: EPINEPHrine HCL 1 MG/10 ML SYRG IV ONE ×2 (17:21)
--- NOTE | 2024-10-20 17:30 | ED.PDOC ---
CPR-HPI HPI Comments 49 Y F brought in by EMS in full arrest. Per EMS, patient was at gas station where she c/o SOB, patient became unresponsive at 1652 where bystanders began 5 minutes of CPR prior to arrival of EMS at 1657. Patient was given x3 epinephrine in route to ED. Patient arrived to ED at 1713 where CPR/ACLS was continued. No other history is available. Time Seen by MD: 17:13 Reviewed Notes: Nurses Notes, Slot Shift Supervisor Notes, Medications, Allergies Allergies: Coded Allergies: NO KNOWN ALLERGIES (Unverified , 08/25/24) Home Meds Active Scripts Levothyroxine Sodium (Levothyroxine Sodium) 150 Mcg Tab, 1 TAB PO DAILY, #30 TAB 5 Refills Prov:ZAINA DE OLIVEIRA MD 08/28/24 Glipizide (Glipizide) 5 Mg Tab, 5 MG PO DAILY, #30 TAB 5 Refills Prov:ZAINA DE OLIVEIRA MD 08/28/24 Metformin Hydrochloride (Metformin Hcl) 1,000 Mg Tab, 1 TAB PO BID, #60 TAB 5 Refills Prov:ZAINA DE OLIVEIRA MD 08/28/24 Fenofibrate (Tricor) 145 Mg Tab, 145 MG PO DAILY, #30 TAB 5 Refills Prov:ZAINA DE OLIVEIRA MD 08/28/24 Amoxicillin & Pot Clavulanate (AUGMENTIN TABLET) 875 Mg Tb, 875 MG PO Q12HR, #14 TAB Prov:ZAINA DE OLIVEIRA MD 08/28/24 Reported Medications Cholecalciferol (Vitamin D) 2,000 Unit Cap, 2000 UNIT PO DAILY, CAP 08/26/24 Lisinopril & Hydrochlorothiazi (Lisinopril/Hydrochlorothi) 1 Tab Tab, 1 TAB PO DAILY 08/26/24 Gabapentin (Gabapentin) 300 Mg Cap, 1 CAP PO BID 08/26/24 Information Source: Emergency Med Personnel Mode of Arrival: EMS Duration: Down time prior EMS: (5 min), Total time prior hopital: (16 min) Inital rhythm: Asystole, PEA Treatment: CPR, Epinephrine Response: No response Associated signs and symptoms: None Past Medical History PAST MEDICAL HISTORY: DM, HTN, Thyroid Surgical 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 Perioral cyanosis.) Neck: Supple Respiratory: Other (Course bilateral breath sounds with bagging. No spontaneous respirations.) Cardiovascular: Other (No heart sounds or palpable pulse) Breast Exam: Deferred Gastrointestinal: Soft Genitalia: Deferred Pelvic: Deferred Rectal: Deferred Extremities: Normal inspection, Pedal edema (Trace) Neurologic: Other (GCS 3) Cerebellar Function: NOT DONE Reflexes: NOT DONE Skin: Pallor, Other (Cool, cyanotic extremities) Lymphatic: NOT DONE Was a procedure done? Was a procedure done?: Yes Sedation Sedation?: No Intubation Indication: Respiratory Insufficiency Prep: Preoxygenation Pretreated with: Nothing Medicated with: Nothing Intubation Approach: Orotracheal Intubation size: cm (8) Informed consent obtained: No Differential Dx CPR Differential Diagnosis: Cardiopulmonary arrest, Cardiogenic shock, Dysrhythmia, Myocardial Infarction, Pulmonary Embolus, Respiratory Failure X-Ray, Labs, Meds, VS Vital Signs Date Time Temp Pulse Resp B/P (MAP) Pulse Ox O2 Delivery O2 Flow Rate FiO2 10/20/24 20:27 0 Ambu-Bag 0 10/20/24 17:35 99.0 0 10 0/0 (0) 80 10/20/24 17:15 99.0 99.0 10/20/24 17:15 Mechanical Ventilator+ 0 21 21 X-Ray, Labs, Meds, VS Comment 49-year-old female with a history of obesity, hypertension, diabetes brought in by EMS in full arrest Vitals remarkable for rectal temperature of 99, oxygen saturation 80% with bagging Exam remarkable for fixed, dilated pupils, perioral cyanosis, no spontaneous respirations, no palpable pulses, cyanotic extremities Patient was intubated on arrival. Please see procedure note. CPR/ACLS was continued according to protocol. Patient's cardiac rhythm varied between asystole and PE AAA. Patient received multiple IV push medications including epinephrine, bicarb, and calcium according to ACLS protocol. Accu- Chek was within normal range. Despite our efforts, patient never regained a palpable pulse. The code was terminated and the patient was pronounced at 5:27 p.m. I later discussed the case with the patient's fiancee, who stated the patient had been complaining of cough, congestion and shortness of breath for the past several days. She had been producing thick yellow sputum. Another family member at home was hospitalized with influenza A. Time of 1ST Reevaluation: 17:27 Reevaluation 1ST: Patient Education/Counseling: Pt Unresponsive Family Education/Counseling: Diagnosis, Treatment Departure 1 Departure Time of Disposition: 17: Impression: Primary Impression: Cardiopulmonary arrest Disposition: 20 Condition: Other () Critical Care Note Critical Care Time?: No Heart Score Heart Score: Heart Score Response (Comments) Value History N/A 0 EKG N/A 0 Age N/A 0 Risk Factors N/A 0 Troponin N/A 0 Total 0 Stability Stability form required: No I personally scribed for ABIODUN JIMÉNEZ MD (SHARIF) on 10/20/24 at 17:30. Electronically submitted by Eula Spencer ([facility]). I personally scribed for ABIODUN JIMÉNEZ MD (SHARIF) on 10/20/24 at 17:36. Electronically submitted by Eula Spencer ([employer]). I personally scribed for ABIODUN JIMÉNEZ MD (SHARIF) on 10/20/24 at 17:53. Electronically submitted by Eula Spencer ([employer]). I personally scribed for ABIODUN JIMÉNEZ MD ([facility]IF) on 10/20/24 at 17:57. Electronically submitted by Chinyere Pittman ([employer]). I personally scribed for ABIODUN JIMÉNEZ MD (SHARIF) on 10/20/24 at 17:58. Electronically submitted by Eula Spencer ([employer]). I personally scribed for ABIODUN JIMÉNEZ MD ([facility]) on 10/20/24 at 18:01. Electronically submitted by Chinyere Pittman ([employer]). I personally scribed for ABIODUN JIMÉNEZ MD ([facility]ARIF) on 10/20/24 at 18:05. Electronically submitted by Eula Spencer ([employer]). I personally scribed for ABIODUN JIM[facility]NEZ MD ([facility] on 10/20/24 at 18:56. Electronically submitted by Eula Spencer ([email or web address]). I personally scribed for ABIODUN JIMÉNEZ MD ([facility] on 10/20/24 at 19:49. Electronically submitted by Eula Spencer ([email or web address]). I personally scribed for ABIODUN JIMÉNEZ MD ([facility] on 10/20/24 at 21:43. Electronically submitted by Eula Spencer ([email or web address]). ABIODUN JIMÉNEZ MD Oct 20, 2024 17:30
[2024-10-20 17:35] VITALS: BP 0/0; PULSE 0; RESP 10; O2SAT 80
--- NOTE | 2024-10-20 20:27 | RESUS ---
CODE BLUE ASSESSSMENT History of Events History of Events: 49 y.o. female brought per EMS for secure code blue in field. CPR started per bystanders after patient became unresponsive after c/o SOB. EMS upon arrival at 1652 with Tomasz device delivering compressions. Patient had 3 round Epi en route to H. OPA airway in place. PMH includes HTN per EMR, no family present. Initial Information Date: Oct 20, 2024 Time: 17:13 Location of Arrest: In Field Arrest Witnessed: Yes CPR started initial time: 16:45 CPR started by whom: Bystander Pre-Hospital Care: ACLS Type of arrest: Cardiac Spontaneous Respirations: No Pulse Present: No Monitoring: ECG, Pulse Oximetry, Capnography Crash Cart Opened and Supplies: Yes Airway Ventilation Breathing at Onset: Assisted Oxygen Delivery Method: Ambu-Bag Artificial Ventilation: Bag/Mask Intubation Time: 15:18 Intubation Size: 8.0 cuffed Intubated by: Dr Esparza Intubation Attempts: 2 Intubated orally: Yes Tube secured at: 22 Confirmation: Auscultation Comments: glideoscope used with second attempt Circulation Circulation #1: Time: 17:20 Pulse Rate (adult): 0 Blood Pressure Systolic: 0 Blood Pressure Diastolic: 0 Temperature (Fahrenheit): 99.0 (rectal) Circulation Comment: asystole Circulation #2: Time: 17:23 Pulse Rate (adult): 0 Blood Pressure Systolic: 0 Blood Pressure Diastolic: 0 Circulation Comment: asystole Circulation #3: Time: 17:27 Pulse Rate (adult): 0 Blood Pressure Systolic: 0 Blood Pressure Diastolic: 0 Circulation Comment: asystole Procedure - IV Procedure - IV : IV Side: Left IV Location: Antecubital IV Catheter Type: Peripheral IV IV Placed: In Hospital IV Gauge: 20 Procedure - Intraosseous Site of Intraosseous: Tibia dat-medial Intraosseous inserted by: placed per ems pre hospital Medications & Response Medications and Responses #1: Medication Time: 17:15 ADULT Medications Given ADULT: Epinephrine 1 mg Route of Administration: IV Heart Rate: 0 EKG Rhythm: PEA, Asystole Blood Pressure Systolic: 0 (0) Blood Pressure Diastolic: 0 Respiratory Rate: 0 Medications and Responses #2: Medication Time: 17:17 ADULT Medications Given ADULT: Epinephrine 1 mg Route of Administration: IV Heart Rate: 0 EKG Rhythm: PEA, Asystole Blood Pressure Systolic: 0 Blood Pressure Diastolic: 0 Medications and Responses #3: ADULT Medications Given ADULT: 2 Amps Na Bicarb Route of Administration: IV Heart Rate: 0 EKG Rhythm: PEA, Asystole Blood Pressure Systolic: 0 Blood Pressure Diastolic: 0 EKG Rhythm: PEA, Asystole Medications and Responses #4: Medication Time: 17:22 ADULT Medications Given ADULT: Epinephrine 1 mg Route of Administration: IV Heart Rate: 0 EKG Rhythm: PEA, Asystole Blood Pressure Systolic: 0 Blood Pressure Diastolic: 0 EKG Rhythm: PEA, Asystole Medications and Responses #5: ADULT Medications Given ADULT: Calcium Chloride 10 mL Route of Administration: IV Heart Rate: 0 EKG Rhythm: PEA, Asystole Blood Pressure Systolic: 0 Blood Pressure Diastolic: 0 EKG Rhythm: PEA, Asystole Medications and Responses #6: ADULT Medications Given ADULT: Epinephrine 1 mg Route of Administration: IV Heart Rate: 0 EKG Rhythm: PEA, Asystole Blood Pressure Systolic: 0 Blood Pressure Diastolic: 0 Nurses Notes Cyn Coma Scale Eye Opening: None (1) [place] Coma Scale Verbal: None (1) [place] Coma Scale Motor: None (1) Pupil Reaction: Non Reactive (fixed and dilated 5mm) Bedside Blood Glucose: 176 Time Code Ended Time Code Ended: 17:23 Post Arrest Status: Outcome of code: Unsuccessful Patient pronounced by: Dr Esparza Family notified: No Code Team Present: Saleem Fleming RN Margot RN Post Resuscitation Neurologica Pupil Size: 6 Comment: Michelle Ventura Oct 20, 2024 20:27 ABIODUN JIMÉNEZ MD Oct 20, 2024 23:42
== END 2024-10-20 17:27 ==
LOC: EDBD 17:14 → EDUNIT# 17:14 → ER 17:20
DX: I46.9 Cardiac arrest, cause unspecified (principal); I10 Essential (primary) hypertension; F17.200 Nicotine dependence, unspecified, uncomplicated; E11.9 Type 2 diabetes mellitus without complications; Z79.84 Long term (current) use of oral hypoglycemic drugs; Z79.890 Hormone replacement therapy; Z79.899 Other long term (current) drug therapy
CPT/HCPCS: 31500; 92950; 99285; J0171; J7060